=== PATIENT | female | born 2005 | race Hispanic/Latino ===

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

== ENCOUNTER 2023-10-05 14:50 | Emergency (ER) | payer OTHER, SELFPAY ==
[2023-10-05] MEDS ORDERED: Lidocaine 1% (PF) 30 ML VIAL ONE (15:29)
[2023-10-05] MEDS ORDERED: Acetaminophen 325 MG TAB ONE (15:30)
[2023-10-05] MEDS ORDERED: Bacitracin 1 PK ONE (16:14)
== END 2023-10-05 16:35 | disposition home or self-care (01) ==
LOC: NAV ERS 14:50
DX: S61.411A Laceration without foreign body of right hand, initial encounter (principal); W25.XXXA Contact with sharp glass, initial encounter
CPT/HCPCS: 12001; 99282; J2001

== ENCOUNTER 2023-10-15 14:18 | Emergency (ER) | payer SELFPAY | END 2023-10-15 14:47 | disposition home or self-care (01) | LOC: NAV ERS 14:18 | DX: S61.411D Laceration without foreign body of right hand, subsequent encounter (principal); W25.XXXD Contact with sharp glass, subsequent encounter ==